=== PATIENT | male | born 1935 | race Caucasian/White ===

== ENCOUNTER 2017-09-05 11:58 | Emergency (ER) | payer OTHER ==
[~2017-09-05] VITALS: Ht 152.4 cm; Wt 79.1 kg
[~2017-09-05 11:58] MED LIST: ADULT LOW STREN81 M2 PO; FISH OIL300 MG PO; LIPITOR40 MG PO; LYCOPENE10 MG PO; METOPROLOL SUCC25 MG PO; OSTEO BI-FLEX1 EACH PO; PLAVIX75 MG PO; PROTONIX20 MG PO; SAW PALMETTO80 MG PO; SIMCOR 500/21 TABLET PO; ZOFRAN4 MG PO
[2017-09-05 12:43] LABS: HEMATOCRIT 40.5 % (38.0-50.0); MCHC 33.6 G/DL (30.0-36.0); MCV 83.5 FL (86-99); MEAN PLAT.VOLUME 10.7 uM^3 (9.0-12.4); PLATELET COUNT 143 K/uL (156-360); RBC DIS.WIDTH-CV 13.6 % (11.8-14.6); RBC DIS.WIDTH-SD 41.6 % (39-53); RED BLOOD COUNT 4.85 M/uL (4.00-5.50)
[2017-09-05 12:52] LABS: CHLORIDE 106 mEq/L (99-109); SODIUM 139 mEq/L (136-147)
[2017-09-05 12:54] LABS: GLUCOSE 108 mg/dL (70-99)
[2017-09-05 12:55] LABS: ANION GAP 12 MEQ/L (2-14)
[2017-09-05 12:58] LABS: GFR ESTIMATE (CALCULATED) > 59 mL/min/
[2017-09-05 12:59] LABS: UREA NITROGEN (BUN) 12 mg/dL (9-23)
[2017-09-05 13:16] LABS: URIC ACID 4.7 mg/dL (3.1-9.2)
[2017-09-05 13:50] LABS: ERTH.SED.RATE 6 MM/HR (0-20)
[2017-09-05] MEDS ORDERED: INDOMETHACIN50 MG PO (14:06)
[2017-09-05] MEDS ORDERED: NORCO 5/3251 TABLET PO (14:06)
[2017-09-05 14:22] VITALS: BP 133/89
== END 2017-09-05 14:24 | disposition home or self-care (01) ==
LOC: EME 11:58
PROVIDERS: Nurse Practitioner Family
DX: M65.4 Radial styloid tenosynovitis [de Quervain] (principal); R73.03 Prediabetes; Z88.0 Allergy status to penicillin
CPT/HCPCS: 73110; 80048; 84550; 85027; 85651; 99281; 99284

== ENCOUNTER 2017-10-05 19:28 | Emergency (ER) | payer OTHER ==
[~2017-10-05] VITALS: Ht 177.8 cm; Wt 79.7 kg
[~2017-10-05 19:28] MED LIST changes: +INDOMETHACIN50 MG PO; +NORCO 5/3251 TABLET PO
[2017-10-05 19:59] LABS: HEMATOCRIT 40.1 % (38.0-50.0); HEMOGLOBIN 13.6 G/DL (12.5-16.6); MCH 28.8 PG (29.0-34.0); MCHC 33.9 G/DL (30.0-36.0); PLATELET COUNT 151 K/uL (156-360); RBC DIS.WIDTH-CV 13.5 % (11.8-14.6); RBC DIS.WIDTH-SD 42.4 % (39-53); RED BLOOD COUNT 4.72 M/uL (4.00-5.50); WHITE BLOOD COUNT 7.5 K/uL (4.1-10.2)
[2017-10-05 20:08] LABS: CHLORIDE 105 mEq/L (99-109); POTASSIUM 4.1 mEq/L (3.7-5.4); SODIUM 141 mEq/L (136-147)
[2017-10-05 20:09] LABS: GLUCOSE 145 mg/dL (70-99)
[2017-10-05 20:13] LABS: CREATININE 1.1 mg/dL (0.6-1.3); GFR ESTIMATE (CALCULATED) > 59 mL/min/ (58.99-99999)
[2017-10-05 20:14] LABS: UREA NITROGEN (BUN) 18 mg/dL (9-23)
[2017-10-05 21:45] VITALS: BP 188/97
== END 2017-10-05 21:46 | disposition home or self-care (01) ==
LOC: EME 19:28
DX: R53.1 Weakness (principal); T39.2X5A Adverse effect of pyrazolone derivatives, initial encounter; K21.9 Gastro-esophageal reflux disease without esophagitis; I10 Essential (primary) hypertension; E78.5 Hyperlipidemia, unspecified; Z79.02 Long term (current) use of antithrombotics/antiplatelets; Z95.1 Presence of aortocoronary bypass graft; Z88.0 Allergy status to penicillin
CPT/HCPCS: 70450; 71046; 80048; 85027; 93005; 99281; 99285